=== PATIENT | male | born 1995 | race American Indian/Alaskan Native ===

== ENCOUNTER 2017-10-25 02:36 | Emergency (ER) | payer OTHER ==
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
[2017-10-25] MEDS ORDERED: Tetracaine 0.5% Ophth 2 ML BOTTLE ONE (07:20)
[2017-10-25 07:30] LABS: BARBITURATES, UR NEGATIVE (NEGATIVE); BENZODIAZEPINES, UR NEGATIVE (NEGATIVE); OPIATES, UR NEGATIVE (NEGATIVE); PHENCYCLIDINE, UR NEGATIVE (NEGATIVE)
[2017-10-25 07:39] VITALS: TEMP 99
[2017-10-25] MEDS ORDERED: Dexamethasone/Tobramycin Ophth Susp OD STA (08:28)
[2017-10-25 09:19] VITALS: BP 136/53; PULSE 94; RESP 18
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
[2017-10-29 20:51] VITALS: O2SAT 97
== END 2017-10-25 09:17 | disposition home or self-care (01) ==
LOC: H.ER 02:36
DX: S09.90XA Unspecified injury of head, initial encounter (principal); S02.31XA Fracture of orbital floor, right side, initial encounter for closed fracture; Y04.0XXA Assault by unarmed brawl or fight, initial encounter; Y92.89 Other specified places as the place of occurrence of the external cause